=== PATIENT | female | born 1995 | race Caucasian/White ===

== ENCOUNTER 2017-10-14 21:41 | Emergency (ER) | payer MEDICAID ==
[~2017-10-14] VITALS: Ht 149.9 cm; Wt 52.3 kg
[~2017-10-14 21:41] MED LIST: BP Med PO; DEPO PROVER150 MG/ML IM; KENALOG0.1% TP; MEDROL 4MG DOSPA4 MG PO; NO HOME MEDICATIONS; PERCOCET 325 MG1 TA2 PO; PRENATAL VITAMI1 TAB PO; PRENATAL1 TA4 PO; TYLENOL 500MG500 MG PO; ZANTAC 7575 MG PO; ZYRTEC10 MG PO; [UNRECOGNIZED DRUG - REMARK]
[2017-10-14] MEDS ORDERED: KEFLEX250 M1 PO (23:30)
[2017-10-14 23:36] VITALS: BP 120/68
== END 2017-10-14 23:36 | disposition home or self-care (01) ==
LOC: ED 21:41
DX: L03.011 Cellulitis of right finger (principal); L02.511 Cutaneous abscess of right hand; W22.01XA Walked into wall, initial encounter; W18.40XA Slipping, tripping and stumbling without falling, unspecified, initial encounter; Y92.830 Public park as the place of occurrence of the external cause; Z23 Encounter for immunization
CPT/HCPCS: 90715

== ENCOUNTER → 2018-03-02 | Outpatient (CLI) | payer MEDICAID ==
[~2018-03-02] MED LIST changes: +KEFLEX250 M1 PO
[2018-03-02 19:04] LABS: CLUE CELLS PRESENT (Not Observd)
[2018-03-02 19:22] LABS: PH-URINE 5.5 (5.0 - 8.0); URINE APPEARANCE HAZY; URINE BILIRUBIN NEGATIVE (NEGATIVE); URINE BLOOD NEGATIVE (NEGATIVE); URINE COLOR YELLOW; URINE GLUCOSE NEGATIVE (NEGATIVE); URINE KETONE NEGATIVE (NEGATIVE); URINE LEUKOCYTE ESTERASE 2+ (NEGATIVE); URINE NITRATE NEGATIVE (NEGATIVE); URINE PROTEIN(semi-quant) NEGATIVE (NEGATIVE); URINE UROBILINOGEN NORMAL (NORMAL)
== END ==
LOC: LAB 17:56
PROVIDERS: Nurse Practitioner
DX: Z20.2 Contact with and (suspected) exposure to infections with a predominantly sexual mode of transmission (principal); R30.0 Dysuria
CPT/HCPCS: Q0111

== ENCOUNTER 2018-08-03 22:07 | Emergency (ER) | payer MEDICAID ==
[2018-08-03] MEDS ORDERED: BACTRIM DS TAB1 EACH PO (22:32)
[2018-08-03 22:44] VITALS: BP 131/60
== END 2018-08-03 22:44 | disposition home or self-care (01) ==
LOC: ED 22:07
DX: L03.115 Cellulitis of right lower limb (principal); L02.415 Cutaneous abscess of right lower limb

== ENCOUNTER → 2018-08-06 | Outpatient (CLI) | payer MEDICAID ==
[2018-08-03 22:44] VITALS: BP 131/60
[~2018-08-06] MED LIST changes: +BACTRIM DS TAB1 EACH PO
[2018-08-06 13:54] LABS: CLUE CELLS PRESENT (Not Observd)
[2018-08-06 13:56] LABS: EOS # 0.6 (0.04-0.40); EOS % 6.8 % (1.0-5.0); HEMATOCRIT 35.2 % (37.0-47.0); HEMOGLOBIN 11.2 g/dL (12.5-16.0); LYMPH# 2.8 (1.50-4.00); MEAN CELL VOLUME 80 fl (78-100); MEAN CORPUSCULAR HEMOGLOBIN 25 pg (27-31); MEAN CORPUSCULAR HGB CONC 32 g/dL (33-37); MONO # 0.9 (0.20-0.80); NEU # 3.9 (1.40-6.50); PLATELET COUNT 254 K/mm3 (130-400); RED BLOOD COUNT 4.43 M/mm3 (4.10-5.30); RED CELL DISTRIBUTION WIDTH 13.9 % (11.5-14.5); WHITE BLOOD COUNT 8.2 K/mm3 (4.8-10.8)
[2018-08-06 13:58] LABS: MEAN PLATELET VOLUME 12.3 fl (7.4-10.4)
== END ==
LOC: LAB 13:25
PROVIDERS: Nurse Practitioner
DX: R10.30 Lower abdominal pain, unspecified (principal)
CPT/HCPCS: Q0111

== ENCOUNTER → 2018-11-23 | Outpatient (CLI) | payer MEDICAID ==
[2018-11-23 09:22] LABS: BASO # 0.1 (0.02-0.10); EOS # 0.6 (0.04-0.40); EOS % 7.6 % (1.0-5.0); HEMATOCRIT 37.8 % (37.0-47.0); HEMOGLOBIN 11.9 g/dL (12.5-16.0); LYMPH# 3.1 (1.50-4.00); MEAN CELL VOLUME 79 fl (78-100); MEAN CORPUSCULAR HEMOGLOBIN 25 pg (27-31); MEAN CORPUSCULAR HGB CONC 32 g/dL (33-37); MONO # 0.7 (0.20-0.80); NEU # 3.2 (1.40-6.50); PLATELET COUNT 262 K/mm3 (130-400); RED CELL DISTRIBUTION WIDTH 13.9 % (11.5-14.5); WHITE BLOOD COUNT 7.7 K/mm3 (4.8-10.8)
[2018-11-23 09:28] LABS: MEAN PLATELET VOLUME 12.1 fl (7.4-10.4)
[2018-11-23 09:32] LABS: ALBUMIN 4.3 g/dL (3.5-5.0); CALCIUM 8.8 mg/dL (8.4-10.2); POTASSIUM 3.7 mmol/L (3.6-5.0); TOTAL BILIRUBIN 0.4 mg/dL (0.2-1.3); TOTAL PROTEIN 7.3 g/dL (6.3-8.2)
== END ==
LOC: LAB 08:52
PROVIDERS: Nurse Practitioner
DX: R10.9 Unspecified abdominal pain (principal)

== ENCOUNTER 2021-02-16 14:02 | Emergency (ER) | payer MEDICAID ==
[2021-02-16 15:19] LABS: BASO # 0.09 (0.02-0.10); EOS # 0.94 (0.04-0.40); HEMATOCRIT 40.2 % (37.0-47.0); HEMOGLOBIN 13.5 g/dL (12.5-16.0); LYMPH# 3.16 (1.50-4.00); MEAN CELL VOLUME 80 fl (78-100); MEAN CORPUSCULAR HEMOGLOBIN 27 pg (27-31); MEAN CORPUSCULAR HGB CONC 34 g/dL (33-37); MEAN PLATELET VOLUME 12.6 fl (7.4-10.4); MONO # 0.82 (0.20-0.80); NEU # 4.42 (1.40-6.50); PLATELET COUNT 230 K/mm3 (130-400); RED BLOOD COUNT 5.01 M/mm3 (4.10-5.30); RED CELL DISTRIBUTION WIDTH 12.2 % (11.5-14.5); WHITE BLOOD COUNT 9.4 K/mm3 (4.8-10.8)
[2021-02-16 15:32] LABS: URINE APPEARANCE HAZY; URINE BILIRUBIN 1+ (NEGATIVE); URINE BLOOD TRACE (NEGATIVE); URINE COLOR YELLOW; URINE GLUCOSE NEGATIVE (NEGATIVE); URINE KETONE NEGATIVE (NEGATIVE); URINE LEUKOCYTE ESTERASE 1+ (NEGATIVE); URINE NITRATE NEGATIVE (NEGATIVE); URINE PROTEIN(semi-quant) NEGATIVE (NEGATIVE); URINE UROBILINOGEN NORMAL (NORMAL)
[2021-02-16 15:43] LABS: ALBUMIN 4.2 g/dL (3.5-5.0); POTASSIUM 3.7 mmol/L (3.5-5.1)
[2021-02-16 15:46] LABS: TOTAL PROTEIN 7.3 g/dL (6.4-8.3)
[2021-02-16 15:47] LABS: TOTAL BILIRUBIN 0.8 mg/dL (0.2-1.2)
[2021-02-16] MEDS ORDERED: LEVOFLOXACIN500 M1 PO (16:28)
[2021-02-16 17:30] VITALS: BP 133/88
== END 2021-02-16 17:15 | disposition home or self-care (01) ==
LOC: ED 14:02
PROVIDERS: Nurse Practitioner
DX: J01.90 Acute sinusitis, unspecified (principal); Z20.822 Contact with and (suspected) exposure to COVID-19
CPT/HCPCS: J1885; J3301

== ENCOUNTER → 2021-04-11 | Outpatient (CLI) | payer MEDICAID ==
[~2021-04-11] MED LIST changes: +LEVOFLOXACIN500 M1 PO
[2021-04-13 08:17] LABS: AFFIRM VAGINITIS PANEL RESULTS AMS
== END ==
LOC: LAB 15:48
PROVIDERS: Physician Assistant
DX: Z20.9 Contact with and (suspected) exposure to unspecified communicable disease (principal)

== ENCOUNTER → 2021-04-27 | Outpatient (CLI) | payer MEDICAID ==
[2021-04-27 13:23] LABS: BASO # 0.05 (0.02-0.10); EOS # 0.63 (0.04-0.40); EOS % 7.6 % (1.0-5.0); HEMATOCRIT 39.2 % (37.0-47.0); HEMOGLOBIN 12.9 g/dL (12.5-16.0); LYMPH# 3.16 (1.50-4.00); MEAN CELL VOLUME 82 fl (78-100); MEAN CORPUSCULAR HEMOGLOBIN 27 pg (27-31); MEAN CORPUSCULAR HGB CONC 33 g/dL (33-37); MEAN PLATELET VOLUME 12.1 fl (7.4-10.4); MONO # 0.68 (0.20-0.80); NEU # 3.75 (1.40-6.50); PLATELET COUNT 239 K/mm3 (130-400); RED CELL DISTRIBUTION WIDTH 12.4 % (11.5-14.5); WHITE BLOOD COUNT 8.3 K/mm3 (4.8-10.8)
[2021-04-27 13:27] LABS: ALBUMIN 3.9 g/dL (3.5-5.0); POTASSIUM 3.5 mmol/L (3.5-5.1)
[2021-04-27 13:28] LABS: CALCIUM 9.2 mg/dL (8.3-10.5)
[2021-04-27 13:29] LABS: TOTAL PROTEIN 6.7 g/dL (6.4-8.3)
[2021-04-27 13:31] LABS: TOTAL BILIRUBIN 0.9 mg/dL (0.2-1.2)
== END ==
LOC: RAD 12:57
PROVIDERS: Physician Assistant
DX: R10.11 Right upper quadrant pain (principal)

== ENCOUNTER → 2021-07-17 | Outpatient (CLI) | payer MEDICAID | LOC: LAB 18:07 | DX: U07.1 COVID-19 (principal) ==

== ENCOUNTER 2022-01-17 11:18 | Emergency (ER) | payer MEDICAID ==
[2022-01-17 11:30] VITALS: BP 151/100
[2022-01-17 11:42] LABS: BASO # 0.07 K/mm3 (0.02-0.10); EOS % 6.8 % (1.0-5.0); HEMOGLOBIN 13.4 g/dL (12.5-16.0); LYMPH# 2.61 K/mm3 (1.50-4.00); MEAN CELL VOLUME 81 fl (78-100); MEAN CORPUSCULAR HEMOGLOBIN 27 pg (27-31); MEAN CORPUSCULAR HGB CONC 33 g/dL (33-37); MEAN PLATELET VOLUME 11.7 fl (7.4-10.4); MONO # 0.65 K/mm3 (0.20-0.80); PLATELET COUNT 251 K/mm3 (130-400); RED BLOOD COUNT 5.05 M/mm3 (4.10-5.30); RED CELL DISTRIBUTION WIDTH 12.4 % (11.5-14.5); WHITE BLOOD COUNT 8.9 K/mm3 (4.8-10.8)
[2022-01-17 11:57] LABS: ALBUMIN 4.1 g/dL (3.5-5.0); POTASSIUM 3.4 mmol/L (3.5-5.1)
[2022-01-17 11:59] LABS: CALCIUM 9.1 mg/dL (8.3-10.5)
[2022-01-17 12:00] LABS: TOTAL PROTEIN 6.9 g/dL (6.4-8.3)
[2022-01-17 12:02] LABS: TOTAL BILIRUBIN 0.5 mg/dL (0.2-1.2)
[2022-01-17 13:05] LABS: URINE WBC 0 /hpf (0-3)
[2022-01-17 13:25] LABS: CLUE CELLS NOT OBSERVED (Not Observd)
[2022-01-17 13:30] LABS: PH-URINE 7.5 (5.0 - 8.0); URINE APPEARANCE HAZY; URINE BILIRUBIN NEGATIVE (NEGATIVE); URINE BLOOD TRACE (NEGATIVE); URINE COLOR YELLOW; URINE GLUCOSE NEGATIVE (NEGATIVE); URINE KETONE NEGATIVE (NEGATIVE); URINE LEUKOCYTE ESTERASE NEGATIVE (NEGATIVE); URINE NITRATE NEGATIVE (NEGATIVE); URINE PROTEIN(semi-quant) TRACE (NEGATIVE); URINE UROBILINOGEN NORMAL (NORMAL)
[2022-01-17 13:31] LABS: URINE MUCUS PRESENT (NOT PRESENT)
== END 2022-01-17 14:49 | disposition home or self-care (01) ==
LOC: ED 11:18
PROVIDERS: Nurse Practitioner
DX: N93.9 Abnormal uterine and vaginal bleeding, unspecified (principal); Z28.310 Unvaccinated for COVID-19; Z32.01 Encounter for pregnancy test, result positive
CPT/HCPCS: Q0111

== ENCOUNTER 2022-01-24 19:13 | Emergency (ER) | payer MEDICAID ==
[~2022-01-24] VITALS: Ht 152.4 cm; Wt 59.1 kg
[2022-01-24 20:52] LABS: BASO # 0.07 K/mm3 (0.02-0.10); EOS # 0.57 K/mm3 (0.04-0.40); EOS % 5.2 % (1.0-5.0); HEMATOCRIT 37.5 % (37.0-47.0); HEMOGLOBIN 12.1 g/dL (12.5-16.0); LYMPH# 3.27 K/mm3 (1.50-4.00); MEAN CELL VOLUME 82 fl (78-100); MEAN CORPUSCULAR HEMOGLOBIN 26 pg (27-31); MEAN CORPUSCULAR HGB CONC 32 g/dL (33-37); MONO # 0.74 K/mm3 (0.20-0.80); NEU # 6.25 K/mm3 (1.40-6.50); PLATELET COUNT 235 K/mm3 (130-400); RED CELL DISTRIBUTION WIDTH 12.7 % (11.5-14.5); WHITE BLOOD COUNT 10.9 K/mm3 (4.8-10.8)
[2022-01-24 21:03] LABS: ALBUMIN 4.1 g/dL (3.5-5.0); POTASSIUM 3.5 mmol/L (3.5-5.1)
[2022-01-24 21:05] LABS: TOTAL PROTEIN 7.1 g/dL (6.4-8.3)
[2022-01-24 21:07] LABS: TOTAL BILIRUBIN 0.4 mg/dL (0.2-1.2)
[2022-01-24 21:12] LABS: URINE WBC 0 /hpf (0-3)
[2022-01-24 21:14] LABS: URINE APPEARANCE CLEAR; URINE COLOR YELLOW
[2022-01-24 21:15] LABS: URINE BILIRUBIN NEGATIVE (NEGATIVE); URINE BLOOD NEGATIVE (NEGATIVE); URINE GLUCOSE NEGATIVE (NEGATIVE); URINE KETONE 1+ (NEGATIVE); URINE LEUKOCYTE ESTERASE NEGATIVE (NEGATIVE); URINE NITRATE NEGATIVE (NEGATIVE); URINE PROTEIN(semi-quant) NEGATIVE (NEGATIVE); URINE UROBILINOGEN NORMAL (NORMAL)
[2022-01-24 21:39] VITALS: BP 120/77
== END 2022-01-24 21:45 | disposition home or self-care (01) ==
LOC: ED 19:13
PROVIDERS: Physician Assistant
DX: O26.891 Other specified pregnancy related conditions, first trimester (principal); R10.32 Left lower quadrant pain; Z3A.01 Less than 8 weeks gestation of pregnancy; Z28.310 Unvaccinated for COVID-19

== ENCOUNTER 2022-01-30 20:25 | Emergency (ER) | payer MEDICAID ==
[2022-01-30 21:17] LABS: BASO # 0.07 K/mm3 (0.02-0.10); EOS # 0.48 K/mm3 (0.04-0.40); EOS % 5.3 % (1.0-5.0); HEMATOCRIT 39.1 % (37.0-47.0); HEMOGLOBIN 12.8 g/dL (12.5-16.0); LYMPH# 3.21 K/mm3 (1.50-4.00); MEAN CELL VOLUME 80 fl (78-100); MEAN CORPUSCULAR HEMOGLOBIN 26 pg (27-31); MEAN CORPUSCULAR HGB CONC 33 g/dL (33-37); MEAN PLATELET VOLUME 11.9 fl (7.4-10.4); MONO # 0.81 K/mm3 (0.20-0.80); NEU # 4.51 K/mm3 (1.40-6.50); PLATELET COUNT 292 K/mm3 (130-400); RED BLOOD COUNT 4.87 M/mm3 (4.10-5.30); RED CELL DISTRIBUTION WIDTH 12.7 % (11.5-14.5); WHITE BLOOD COUNT 9.1 K/mm3 (4.8-10.8)
[2022-01-30 21:26] LABS: ALBUMIN 4.5 g/dL (3.5-5.0); POTASSIUM 3.4 mmol/L (3.5-5.1)
[2022-01-30 21:27] LABS: CALCIUM 9.4 mg/dL (8.3-10.5)
[2022-01-30 21:28] LABS: TOTAL PROTEIN 7.7 g/dL (6.4-8.3)
[2022-01-30 21:30] LABS: TOTAL BILIRUBIN 0.4 mg/dL (0.2-1.2)
[2022-01-30 21:39] LABS: URINE APPEARANCE CLOUDY; URINE BILIRUBIN NEGATIVE (NEGATIVE); URINE BLOOD 250 ery/uL (NEGATIVE); URINE COLOR YELLOW; URINE GLUCOSE NEGATIVE (NEGATIVE); URINE KETONE NEGATIVE (NEGATIVE); URINE LEUKOCYTE ESTERASE NEGATIVE (NEGATIVE); URINE NITRATE NEGATIVE (NEGATIVE); URINE PROTEIN(semi-quant) TRACE (NEGATIVE); URINE UROBILINOGEN NORMAL (NORMAL); URINE WBC 0-1 /hpf (0-3)
[2022-01-31 01:32] VITALS: BP 131/71
== END 2022-01-31 01:33 | disposition home or self-care (01) ==
LOC: ED 20:25
PROVIDERS: Physician Assistant
DX: O20.9 Hemorrhage in early pregnancy, unspecified (principal); Z3A.01 Less than 8 weeks gestation of pregnancy; Z28.310 Unvaccinated for COVID-19
CPT/HCPCS: J2270; J2405; J3010

== ENCOUNTER → 2023-08-05 | Outpatient (CLI) | payer MEDICAID ==
[2023-08-05 08:25] LABS: CLUE CELLS PRESENT (Not Observd)
[2023-08-05 22:00] LABS: HEPATITIS C ANTIBODY Negative (Negative)
== END ==
LOC: LAB 08:13
PROVIDERS: Physician Assistant
DX: N89.8 Other specified noninflammatory disorders of vagina (principal)
CPT/HCPCS: Q0111